=== PATIENT | female | born 1970 | race Caucasian/White ===

== ENCOUNTER 2019-10-10 08:07 | Emergency (ER) | payer OTHER ==
[~2019-10-10] VITALS: Ht 175.3 cm; Wt 80.3 kg
[2019-10-10] MEDS ORDERED: PREDNISONE20 MG PO (08:51)
[2019-10-10] MEDS ORDERED: LIDODERM1 EACH TOP (08:51)
[2019-10-10] MEDS ORDERED: CYCLOBENZAPRINE10 MG PO (08:51)
== END 2019-10-10 10:12 | disposition home or self-care (01) ==
LOC: ED 08:07
DX: M54.42 Lumbago with sciatica, left side (principal); Z88.5 Allergy status to narcotic agent; Z88.6 Allergy status to analgesic agent
CPT/HCPCS: 96372; 99283; A9270; J1885; J7512

== ENCOUNTER 2024-04-18 22:04 | Emergency (ER) | payer BC ==
[~2024-04-18] VITALS: Ht 175.3 cm; Wt 70.0 kg
[~2024-04-18 22:04] MED LIST: CYCLOBENZAPRINE10 MG PO; LIDODERM1 EACH TOP; PREDNISONE20 MG PO
[2024-04-18] MEDS ORDERED: MONTELUKAST SOD10 MG PO (22:16)
[2024-04-18] MEDS ORDERED: KETOROLAC TROME10 MG PO (22:16)
[2024-04-18] MEDS ORDERED: ondansetron HCL 4 MG/2 ML VIAL IV ONE ×2 (22:30→23:15)
[2024-04-18 22:33] LABS: BASOPHILS 0.3 % (0-2); EOSINOPHILS 3.4 % (0-6); HEMATOCRIT 39.7 % (35.0-50.0); HEMOGLOBIN 13.6 g/dL (12.0-18.0); LYMPHOCYTES 19.2 % (24-44); MCH 33.7 (27-36); MCHC 34.2 g/dl (30-36); MCV 98.6 fl (81-99); MONOCYTES 6.8 % (0-12); NEUTROPHILS 70.3 % (39-80); PLATELET COUNT 344 K/uL (140-440); RBC 4.03 M/ul (4.3-5.7); RDW 13.5 (10.5-15.0)
[2024-04-18 22:43] LABS: ALBUMIN 3.8 g/dL (3.4-5.0); ALBUMIN/GLOBULIN RATIO 1.41 (1.1-2.4); ANION GAP 10.6 (7-21); BILIRUBIN, TOTAL 0.3 mg/dL (0.2-1.0); BUN/CREATININE RATIO 20.98 (6.0-28.6); CALCIUM 8.9 mg/dL (8.5-10.1); CREATININE, SERUM 0.81 mg/dL (0.55-1.02); MAGNESIUM 2.1 mg/dL (1.8-2.4); POTASSIUM 4.6 mmol/L (3.5-5.1); PROTEIN, TOTAL 6.5 g/dL (6.4-8.2)
[2024-04-18] MEDS ORDERED: HYDROmorphone HCL 1 MG/ML SYR IV PRN (23:15)
[2024-04-18] MEDS ORDERED: LACTATED RINGER'S 1,000 ML IV ONE (23:15)
[2024-04-19] MEDS ORDERED: droPERidol 5 MG/2 ML VIAL IV ONE (00:30)
[2024-04-19 00:32] LABS: BILIRUBIN, URINE NEGATIVE (negative); BLOOD/HGB, URINE NEGATIVE (Negative); KETONE, URINE NEGATIVE (Negative); LEUK ESTERASE, URINE NEGATIVE (negative); NITRITE, URINE NEGATIVE (negative)
[2024-04-19] MEDS ORDERED: KETOROLAC TROMETHAMINE 30 MG/ML VIAL IV ONE (00:45)
[2024-04-19 01:27] VITALS: BP 124/70
== END 2024-04-19 01:27 | disposition home or self-care (01) ==
LOC: ED 22:04
PROVIDERS: Internal Medicine
DX: K52.9 Noninfective gastroenteritis and colitis, unspecified (principal); Z79.899 Other long term (current) drug therapy; Z88.5 Allergy status to narcotic agent
CPT/HCPCS: 36415; 74177; 80053; 81003; 83690; 83735; 84703; 85025; 96361; 96375; 96376; 99284-25; J1171; J1790; J1885; J2405; J7121; Q9967